=== PATIENT | female | born 1995 | race Caucasian/White ===

== ENCOUNTER 2017-09-16 06:52 | Emergency (ER) | payer OTHER ==
[2017-09-16 07:05] VITALS: BP 144/61; PULSE 97; RESP 18; TEMP 98.7; O2SAT 99
[2017-09-16] MEDS ORDERED: SODIUM CHLOR 0.9% 1000 ML INJ 1,000 ML IV SCH (07:10)
[2017-09-16] MEDS ORDERED: SODIUM CHLORIDE 0.9% FLUSH 10 ML FLUSH IV FLUSH PRN (07:15)
--- NOTE | 2017-09-16 07:18 | PD ---
HPI Chief Complaint: GI Complaint Time Seen by Provider: 07:10 Travel History International Travel<30 days: No Contact w/Intl Traveler<30days: No Traveled to known affect area: No History of Present Illness HPI Patient comes in complaining of a couple day history of nausea vomiting and diarrhea, also complaining of crampy abdominal pain which is intermittent, 7 out of 10, nonradiating. Per patient no alleviating or aggravating factors. Per patient no associated factors such as runny nose, cough, sore throat, chest pain, back pain, flank pain, dysuria, urgency, frequency, no bloody diarrhea. Patient denies having any drug allergies however she requests no narcotics be used Past medical history significant only for asthma No significant past surgical history PFSH Past Medical History ?: Not LMP: 09/16/17 Social History Tobacco Use: No Allergies-Medications (Allergen,Severity, Reaction): Coded Allergies: No Known Allergies (Verified Allergy, Unknown, 09/16/17) Uncoded Allergies: NO NARCOTICS (Adverse Reaction, Unknown, 09/16/17) Reported Meds & Prescriptions Reported Meds & Active Scripts Active Reported Proair Hfa 8.5 GM Inh (Albuterol Sulfate) 90 Mcg/Act Aer 2 Puff INH Q4-6H PRN 108 mcg/actuation Abilify (Aripiprazole) 15 Mg Tab 15 Mg PO DAILY Seroquel (Quetiapine Fumarate) 50 Mg Tab 50 Mg PO HS Gabapentin 300 Mg Cap 300 Mg PO TID Review of Systems General / Constitutional: No: Fever Eyes: No: Visual changes HENT: No: Headaches Cardiovascular: No: Chest Pain or Discomfort Respiratory: No: Shortness of Breath Gastrointestinal: Positive: Nausea, Vomiting, Diarrhea, Abdominal Pain Genitourinary: No: Dysuria Musculoskeletal: No: Pain Skin: No Rash Neurologic: No: Weakness Psychiatric: No: Depression Endocrine: No: Polydipsia Hematologic/Lymphatic: No: Easy Bruising Physical Exam Narrative General: The patient is young female in no acute distress but in some discomfort due to crampy abdominal pain. Head and Neck exam: Head is normocephalic atraumatic. Eyes: EOMI, pupils are equal round and reactive to light. Nose: Midline septum with pink mucous membranes Mouth: Dentition unremarkable. Moist mucus membranes. Posterior oropharynx is not erythematous. No tonsillar hypertrophy. Uvula midline. Airway patent. Neck: No palpable lymphadenopathy. No nuchal rigidity. No thyromegaly. Cardiovascular: Regular rate and rhythm without murmurs, gallops, or rubs. No pulse deficit to the extremities. Lungs: Clear to auscultation bilaterally. No wheezes, rhonchi, or rales. Abdomen: Soft, without tenderness to palpation in all 4 quadrants of the abdomen. No guarding, rebound, or rigidity. Negative Kennedy sign. Extremities: No clubbing, cyanosis, or edema. 2+ pulses in all 4 extremities. Back: No spinous process tenderness to palpation. No costovertebral angle tenderness to palpation. Neurologic Exam: Cranial nerves 2-12 were intact on exam. Strength is 5/5 in all 4 extremities. No sensory deficits noted. No dysdiadochokinesis. Good finger to nose and Heel to galvan bilaterally. Skin Exam: No rash noted. Intact skin that is warm and dry. Data Data Last Documented VS Vital Signs Date Time Temp Pulse Resp B/P (MAP) Pulse Ox O2 Delivery O2 Flow Rate FiO2 09/16/17 07:30 82 16 98 09/16/17 07:05 98.7 144/61 (88) Orders Orders Complete Blood Count With Diff (09/16/17 07:10) Comprehensive Metabolic Panel (09/16/17 07:10) Lipase (09/16/17 07:10) Urinalysis - C+S If Indicated (09/16/17 07:10) Iv Access Insert/Monitor (09/16/17 07:10) Ecg Monitoring (09/16/17 07:10) Oximetry (09/16/17 07:10) NPO (09/16/17 07:10) Sodium Chlor 0.9% 1000 Ml Inj (Ns 1000 M (09/16/17 07:10) Sodium Chloride 0.9% Flush (Ns Flush) (09/16/17 07:15) Ed Urine Pregnancytest Poc (09/16/17 07:10) Dicyclomine Inj (Bentyl Inj) (09/16/17 07:30) Diphenhydramine Inj (Benadryl Inj) (09/16/17 07:30) Prochlorperazine Inj (Compazine Inj) (09/16/17 07:30) Ct Abd/Pel W/O Iv Contrast (09/16/17 08:20) Labs Laboratory Tests Test 09/16/17 07:28 White Blood Count 5.7 TH/MM3 Red Blood Count 4.35 MIL/MM3 Hemoglobin 13.4 GM/DL Hematocrit 39.5 % Mean Corpuscular Volume 90.9 FL Mean Corpuscular Hemoglobin 30.9 PG Mean Corpuscular Hemoglobin Concent 34.0 % Red Cell Distribution Width 14.0 % Platelet Count 203 TH/MM3 Mean Platelet Volume 9.5 FL Neutrophils (%) (Auto) 53.5 % Lymphocytes (%) (Auto) 35.8 % Monocytes (%) (Auto) 8.6 % Eosinophils (%) (Auto) 1.6 % Basophils (%) (Auto) 0.5 % Neutrophils # (Auto) 3.0 TH/MM3 Lymphocytes # (Auto) 2.0 TH/MM3 Monocytes # (Auto) 0.5 TH/MM3 Eosinophils # (Auto) 0.1 TH/MM3 Basophils # (Auto) 0.0 TH/MM3 CBC Comment DIFF FINAL Differential Comment Urine Color YELLOW Urine Turbidity CLEAR Urine pH 7.0 Urine Specific [place] 1.019 Urine Protein NEG mg/dL Urine Glucose (UA) NEG mg/dL Urine Ketones NEG mg/dL Urine Occult Blood LARGE Urine Nitrite NEG Urine Bilirubin NEG Urine Urobilinogen LESS THAN 2.0 MG/DL Urine Leukocyte Esterase MOD Urine RBC 9 /hpf Urine WBC 8 /hpf Urine Squamous Epithelial Cells 1 /hpf Microscopic Urinalysis Comment CULT NOT INDICATED Blood Urea Nitrogen 15 MG/DL Creatinine 0.86 MG/DL Random Glucose 91 MG/DL Total Protein 7.4 GM/DL Albumin 3.5 GM/DL Calcium Level 8.5 MG/DL Alkaline Phosphatase 77 U/L Aspartate Amino Transf (AST/SGOT) 50 U/L Alanine Aminotransferase (ALT/SGPT) 105 U/L Total Bilirubin 0.3 MG/DL Sodium Level 144 MEQ/L Potassium Level 4.1 MEQ/L Chloride Level 111 MEQ/L Carbon Dioxide Level 23.7 MEQ/L Anion Gap 9 MEQ/L Estimat Glomerular Filtration Rate 84 ML/MIN Lipase 97 U/L [facility] Medical Decision Making Medical Screen Exam Complete: Yes Emergency Medical Condition: Yes Medical Record Reviewed: Yes Differential Diagnosis Gastroenteritis versus colitis versus diverticulitis Narrative Course CBC shows no leukocytosis, no anemia, normal platelet count, no left shift UA is consistent with contaminant, in which there is some blood as well as leukocyte esterase is moderate in size however not consistent with a UTI Electrolytes are all within normal limits, normal kidney, normal pancreatic enzymes. Patient has some mildly elevated liver enzymes with an AST of 50 and an ALT of 105, however normal bilirubin and normal alkaline phosphatase does not suggest that this is an obstructive pattern. However this should have further follow- up as an outpatient. Negative test Currently awaiting CT abdomen pelvis results. As of 819 CT abdomen and pelvis read by radiologist as negative Diagnosis Primary Impression: Gastroenteritis Patient Instructions: Gastroenteritis (ED), General Instructions Scripts Loperamide (Loperamide) 2 Mg Cap 2 MG PO DIRECTED Y for DIARRHEA, #14 CAP 0 Refills One capsule after each loose stool. Not to exceed 8 capsules per day. Prov: Raf Frey MD 09/16/17 Ondansetron Odt (Zofran Odt) 4 Mg Tab 4 MG SL Q6HR Y for Nausea/Vomiting, #20 TAB 0 Refills Prov: Raf Frey MD 09/16/17 Disposition: 01 DISCHARGE HOME Condition: Stable Raf Frey MD September 16, 2017 07:18
[2017-09-16] MEDS ORDERED: ABIL15TA3 PO (07:20)
[2017-09-16] MEDS ORDERED: SERO50TA PO (07:20)
[2017-09-16] MEDS ORDERED: GABA300C5 PO (07:20)
[2017-09-16] MEDS ORDERED: ALBUAER3 INH (07:20)
[2017-09-16 07:30] VITALS: PULSE 82; RESP 16; O2SAT 98
[2017-09-16] MEDS ORDERED: DICYCLOMINE HCL 20 MG/2 ML VIAL IM ONE (07:30)
[2017-09-16] MEDS ORDERED: diphenhydrAMINE HCL 50 MG/ML VIAL IV PUSH ONE (07:30)
[2017-09-16] MEDS ORDERED: PROCHLORPERAZINE INJ 10 MG/2 ML VIAL IV PUSH ONE (07:30)
[2017-09-16 07:41] LABS: BASOPHIL % 0.5 % (0.0-2.0); EOSINOPHIL # 0.1 TH/MM3 (0-0.4); EOSINOPHIL % 1.6 % (0.0-4.0); HEMATOCRIT 39.5 % (35.0-46.0); HEMOGLOBIN 13.4 GM/DL (11.6-15.3); LYMPH % 35.8 % (9.0-44.0); MEAN CELL VOLUME 90.9 FL (80.0-100.0); MEAN CORPUSCULAR HEMOGLOBIN 30.9 PG (27.0-34.0); MEAN PLATELET VOLUME 9.5 FL (7.0-11.0); MONO % 8.6 % (0.0-8.0); MONOCYTE # 0.5 TH/MM3 (0-0.9); NEUT % 53.5 % (16.0-70.0); PLATELET COUNT 203 TH/MM3 (150-450); RED BLOOD COUNT 4.35 MIL/MM3 (4.00-5.30); WHITE BLOOD COUNT 5.7 TH/MM3 (4.0-11.0)
[2017-09-16 08:01] LABS: BILIRUBIN, URINE NEG (NEG); BLOOD, URINE LARGE (NEG); GLUCOSE,URINE NEG (NEG); KETONE, URINE NEG (NEG); NITRITE,URINE NEG (NEG); SQUAMOUS EPITHELIAL CELL URINE 1 /hpf (0-5); URINE COLOR YELLOW (YELLW/STRAW); URINE LEUKOCYTE ESTERASE MOD (NEG)
[2017-09-16 08:06] LABS: ALKALINE PHOSPHATASE 77 U/L (45-117); TOTAL BILIRUBIN ADULT 0.3 MG/DL (0.2-1.0); TOTAL PROTEIN 7.4 GM/DL (6.4-8.2)
[2017-09-16 08:13] LABS: ALBUMIN 3.5 GM/DL (3.4-5.0); ALT (GPT) 105 U/L (9-42); AST (GOT) 50 U/L (16-38); BICARBONATE 23.7 MEQ/L (21.0-32.0); BLOOD UREA NITROGEN 15 MG/DL (7-18); CALCIUM 8.5 MG/DL (8.5-10.1); CHLORIDE 111 MEQ/L (98-107); CREATININE 0.86 MG/DL (0.50-1.00); GLOMERULAR FILTRATION RATE 84 ML/MIN (>89); GLUCOSE,RANDOM 91 MG/DL (74-106); SODIUM (NA) 144 MEQ/L (136-145)
--- NOTE | 2017-09-16 09:29 | RADRPT ---
EXAM DATE: 09/16/2017 9:05 AM EDT AGE/SEX: 22 years / Female INDICATIONS: Abdominal pain. Nausea, vomiting, diarrhea, and fever for two days. CLINICAL DATA: This is the patient's initial encounter. Patient reports that signs and symptoms have been present for 2 days and indicates a pain score of 6/10. MEDICAL/SURGICAL HISTORY: Asthma. None. RADIATION DOSE: 8.01 CTDI (mGy) COMPARISON: No prior [place] exams available for comparison. TECHNIQUE: Multiple contiguous axial images were obtained through the abdomen. Images were obtained using multiple row detector helical technique. Using dose reduction techniques, radiation dose was ke pt as low as reasonably achievable to obtain optimal diagnostic quality images. FINDINGS: Lower Lungs: The visualized lower lungs are clear. Liver: The liver has a homogeneous density without space-occupying lesion. There is no dilation of th e biliary tree. Gallbladder is unremarkable in appearance. Spleen: Homogeneous density without enlargement. Pancreas: Unremarkable without mass or calcification. Kidneys: Normal in size and shape. No evidence of mass or hydronephrosis. Adrenal Glands: Unremarkable. Aorta: The aorta and proximal iliac vessels are grossly unremarkable without aneurysmal dilation. Bowel/Mesentery: No oral contrast was given limiting the sensitivity of the exam. Bowel gas pattern is grossly unremarkable with no free air or fluid. Abdominal Wall: Intact. Retroperitoneum: No evidence of adenopathy in the retrocrural, para-aortic, or deep pelvic regions. Bladder: Contours are smooth. Reproductive Organs: No abnormal masses or calcifications seen. Inguinal: The inguinal region is unremarkable without evidence of adenopathy. Bony Structures: Unremarkable. CONCLUSION: 1. Noncontrast examination demonstrating a grossly unremarkable bowel gas pattern. Electronically signed by: Chaim Wallace MD 09/16/2017 9:28 AM EDT
[2017-09-16] MEDS ORDERED: LOPE2CAP PO (09:32)
[2017-09-16] MEDS ORDERED: ZOFR4TAB3 SL (09:32)
[2017-09-16] MEDS ORDERED: DICY10 PO (10:50)
== END 2017-09-16 11:21 | disposition home or self-care (01) ==
LOC: NEPE 06:52
DX: K52.9 Noninfective gastroenteritis and colitis, unspecified (principal)
CPT/HCPCS: 74176; 80053; 81001; 83690; 84703; 85025; 96361; 96372; 96374; 96375; 99284; J0500; J0780; J1200; J7030

== ENCOUNTER 2017-09-25 23:50 | Emergency (ER) | payer OTHER ==
[~2017-09-25 23:50] MED LIST: ABIL15TA3 PO; ALBUAER3 INH; DICY10 PO; GABA300C5 PO; SERO50TA PO; ZOFR4TAB3 SL
[2017-09-25 23:52] VITALS: BP 106/74; PULSE 100; RESP 16; TEMP 97.4; O2SAT 100
--- NOTE | 2017-09-26 00:08 | PD ---
HPI Chief Complaint: Injury Time Seen by Provider: 00:02 Travel History International Travel<30 days: No Contact w/Intl Traveler<30days: No Traveled to known affect area: No History of Present Illness HPI 22-year-old white female right-hand dominant presents emergency department for evaluation of right hand after punching a concrete wall 2 days ago. She states that she has broken his hand once in the past. She never followed up with orthopedics. She denies any numbness or tingling. She states the pain is mild to moderate. Worse with movement. Some relief with elevation. She denies any other injuries. [facility] Past Medical History Narrative Medical Bipolar, insomnia, anxiety, right hand boxer fracture Asthma: Yes Bipolar Disorder: Yes Anxiety: Yes Tetanus Vaccination: < 5 Years ?: Not Past Surgical History Surgical History: No Previous Surgery Social History Alcohol Use: No Tobacco Use: Yes Substance Use: No (hx) Allergies-Medications (Allergen,Severity, Reaction): Coded Allergies: peanut (Verified Allergy, Severe, Hives, 09/26/17) No Known Allergies (Verified Allergy, Unknown, 09/25/17) Uncoded Allergies: NO NARCOTICS (Adverse Reaction, Unknown, 09/16/17) Reported Meds & Prescriptions Reported Meds & Active Scripts Active Bentyl (Dicyclomine HCl) 10 Mg Cap 10 Mg PO TID PRN 5 Days Zofran Odt (Ondansetron Odt) 4 Mg Tab 4 Mg SL Q6HR PRN Reported Proair Hfa 8.5 GM Inh (Albuterol Sulfate) 90 Mcg/Act Aer 2 Puff INH Q4-6H PRN 108 mcg/actuation Abilify (Aripiprazole) 15 Mg Tab 15 Mg PO DAILY Seroquel (Quetiapine Fumarate) 50 Mg Tab 50 Mg PO HS Gabapentin 300 Mg Cap 300 Mg PO TID Review of Systems General / Constitutional: No: Fever Eyes: No: Visual changes HENT: No: Headaches Cardiovascular: No: Chest Pain or Discomfort Respiratory: No: Shortness of Breath Gastrointestinal: No: Abdominal Pain Genitourinary: No: Dysuria Musculoskeletal: Positive: Arthralgias, Limited ROM, Edema, Pain Skin: No Rash Neurologic: No: Weakness, Paresthesia Psychiatric: No: Depression Endocrine: No: Polydipsia Hematologic/Lymphatic: No: Easy Bruising Physical Exam Narrative GENERAL: Well-developed, well-nourished in no acute distress. Nontoxic appearing. HEAD: Normocephalic, atraumatic. EYES: Pupils equal round and reactive. Extraocular motions intact. No scleral icterus. No injection or drainage. ENT: TMs clear without erythema. The external auditory canals clear. Nose: clear . Posterior pharynx is pink and moist. No tonsillar edema or exudate. Uvula midline. Airway patent. NECK: Trachea midline.Supple, nontender, moves head freely. No central bony tenderness or spasm. CARDIOVASCULAR: Regular rate and rhythm without murmurs, gallops, or rubs. RESPIRATORY: Clear to auscultation. Breath sounds equal bilaterally. No wheezes , rales, or rhonchi. GASTROINTESTINAL: Abdomen soft, non-tender, nondistended. No hepato-splenomegaly , or palpable masses. No guarding. EXTREMITIES: No clubbing, cyanosis. Examination of the right hand reveals pain to the fifth metacarpal. There is mild swelling. The skin is intact. There is no pain in the fingers remaining hand. No pain in the wrist, elbow or shoulder. She has intact median/ulnar/radial nerves. The left upper extremity as well as lower extremities are without localizing bony tenderness or deformity. BACK: Nontender without deformity or crepitance. No flank tenderness.. Data Data Last Documented VS Vital Signs Date Time Temp Pulse Resp B/P (MAP) Pulse Ox O2 Delivery O2 Flow Rate FiO2 09/25/17 23:52 97.4 100 16 106/74 (85) 100 Orders Orders Hand, Complete ([id number]) (09/26/17 00:05) Ice/Cold Pack (09/26/17 00:05) Ed Discharge Order (09/26/17 00:40) Naproxen (Naprosyn) (09/26/17 00:45) [facility] Medical Decision Making Medical Screen Exam Complete: Yes Emergency Medical Condition: Yes Medical Record Reviewed: Yes Interpretation(s) Last 24 hours Impressions Hand X-Ray 09/26/17 0005 Signed Impressions: CONCLUSION: No acute bony abnormalities. Differential Diagnosis MDM: High Differential diagnoses: Fracture, sprain, strain, dislocation, contusion, neurovascular injury Narrative Course X-ray of the right hand is negative for bony injury. Patient is given ice pack and Naprosyn 500 mg p.o. for pain. This is right hand contusion Diagnosis Primary Impression: Right hand contusion Patient Instructions: General Instructions Additional Instructions: Rest. Elevation. Diclofenac. Follow-up with a primary care doctor in 1 week. Return to the ER for emergencies. Med/Other Pt SpecificInfo: Prescription(s) given Scripts Diclofenac Sodium DR (Diclofenac Sodium DR) 75 Mg Tabdr 75 MG PO BID, #14 TAB 0 Refills Prov: Alannah Ann DO 09/26/17 Disposition: 01 DISCHARGE HOME Condition: Stable Niko Aguillon Sep 26, 2017 00:08
--- NOTE | 2017-09-26 00:24 | RADRPT ---
EXAM DATE: 09/26/2017 12:19 AM EDT AGE/SEX: 22 years / Female INDICATIONS: Right medial hand pain post punching injury today CLINICAL DATA: This is the patient's initial encounter. Patient reports that signs and symptoms have been present for 1 day and indicates a pain score of 9/10. MEDICAL/SURGICAL HISTORY: . Prior right wrist, right 5th metacarpal fracture None. COMPARISON: No prior exams available for comparison. FINDINGS: Bony structures are intact and in normal alignment. Osseous density is normal. Soft tissues are unre markable. No radiopaque foreign bodies seen. CONCLUSION: No acute bony abnormalities. Electronically signed by: Niko Siddiqui MD 09/26/2017 12:23 AM EDT
[2017-09-26] MEDS ORDERED: DICL75TA PO (00:41)
[2017-09-26] MEDS ORDERED: NAPROXEN 500 MG TAB PO ONE (00:45)
== END 2017-09-26 00:56 | disposition home or self-care (01) ==
LOC: NEPD 23:50
DX: S60.221A Contusion of right hand, initial encounter (principal); F31.9 Bipolar disorder, unspecified; W22.01XA Walked into wall, initial encounter
CPT/HCPCS: 73130; 99283

== ENCOUNTER 2017-09-28 21:21 | Emergency (ER) | payer OTHER ==
[~2017-09-28] VITALS: Ht 170.2 cm; Wt 81.8 kg
[~2017-09-28 21:21] MED LIST changes: +DICL75TA PO
[2017-09-28 21:48] VITALS: BP 128/79; PULSE 84; RESP 20; TEMP 98.3; O2SAT 99
--- NOTE | 2017-09-28 22:24 | PD ---
HPI Chief Complaint: Injury Time Seen by Provider: 22:09 Travel History International Travel<30 days: No Contact w/Intl Traveler<30days: No Traveled to known affect area: No History of Present Illness HPI Patient 22-year-old female a few days ago hyperextended her fingers and wrists as she was walking by the kitchen counter at work and caught her fingers on that counter. She was here a few days ago had an x-ray which was negative. However that time she stated that she punched the wall. She does state that she broke his hand once in the past. She states that she has not really been able to afford a splint and she needs to return to work and is here chiefly for return to work note. No additional injuries. States pain is mild, for the past few days, right hand, context and associated signs symptoms as above PFSH Past Medical History Asthma: Yes Bipolar Disorder: Yes Anxiety: Yes Tetanus Vaccination: < 5 Years Influenza Vaccination: No ?: Not Social History Alcohol Use: No Tobacco Use: Yes (1/2 PPD) Substance Use: No (hx) Allergies-Medications (Allergen,Severity, Reaction): Coded Allergies: peanut (Verified Allergy, Severe, Hives, 09/28/17) Uncoded Allergies: NO NARCOTICS (Adverse Reaction, Unknown, 09/16/17) Reported Meds & Prescriptions Reported Meds & Active Scripts Active Reported Proair Hfa 8.5 GM Inh (Albuterol Sulfate) 90 Mcg/Act Aer 2 Puff INH Q4-6H PRN 108 mcg/actuation Abilify (Aripiprazole) 15 Mg Tab 15 Mg PO DAILY Seroquel (Quetiapine Fumarate) 50 Mg Tab 50 Mg PO HS Gabapentin 300 Mg Cap 300 Mg PO TID Review of Systems Except as stated in HPI: all other systems reviewed are Neg Physical Exam Narrative GENERAL: Well-nourished, well-developed patient. SKIN: Focused skin assessment warm/dry. HEAD: Normocephalic. EYES: No scleral icterus. No injection or drainage. NECK: Supple, trachea midline. No JVD or lymphadenopathy. CARDIOVASCULAR: Regular rate and rhythm without murmurs, gallops, or rubs. RESPIRATORY: Breath sounds equal bilaterally. No accessory muscle use. GASTROINTESTINAL: Abdomen soft, non-tender, nondistended. MUSCULOSKELETAL: This is minimal bruising over the midshaft metacarpal on the fourth and fifth digit, pulse motor and sensory intact distally in all 4 extremities, cap refill brisk in all 5 digits of the right hand, she is intact flexor and extension tendons in all 5 digits at the PIP DIP and MCP joints. Compartments are soft. No tenderness of the wrist peer BACK: Nontender without obvious deformity. No CVA tenderness. Data Data Last Documented VS Vital Signs Date Time Temp Pulse Resp B/P (MAP) Pulse Ox O2 Delivery O2 Flow Rate FiO2 09/28/17 21:51 Room Air 09/28/17 21:48 98.3 84 20 128/79 (95) 99 Orders Orders Noel Bandage (09/28/17 22:21) Ed Discharge Order (09/28/17 22:24) MDM Medical Decision Making Medical Screen Exam Complete: Yes Emergency Medical Condition: Yes Differential Diagnosis Hand contusion, hand sprain, and strain. Narrative Course Patient room to the emergency department, she does have some bruising on the lateral aspect of her right hand, previous x-ray was reviewed that did not show any bony abnormality. The tender portion is mid metacarpal and is no indication for further imaging. She would really only like note to return to work and I am happy to oblige with some restrictions regarding weight lifting and these were placed on the Workmen's Comp. form. Discussed symptomatic management follow-up with a primary care physician or orthopedic surgeon and return to ED criteria Diagnosis Primary Impression: Hand contusion Qualified Codes: S60.221D - Contusion of right hand, subsequent encounter Patient Instructions: General Instructions, RICE Therapy (GEN) Departure Forms: Tests/Procedures, Work Release Enter return to work date: Sep 29, 2017 Special Instructions: No lifting more than ten pounds with right hand until cleared by primary care physician or orthopedic surgeon. Additional Instructions: Follow up with your boss regarding work place related injury. Disposition: 01 DISCHARGE HOME Condition: Stable Frank Candelaria MD Sep 28, 2017 22:24
== END 2017-09-28 22:32 | disposition home or self-care (01) ==
LOC: PHEFT 21:21
DX: S60.221D Contusion of right hand, subsequent encounter (principal); J45.909 Unspecified asthma, uncomplicated; F31.9 Bipolar disorder, unspecified; F41.9 Anxiety disorder, unspecified; F17.200 Nicotine dependence, unspecified, uncomplicated; W22.8XXD Striking against or struck by other objects, subsequent encounter; Z79.899 Other long term (current) drug therapy; Z79.51 Long term (current) use of inhaled steroids
CPT/HCPCS: 99281